=== PATIENT | female | born 1955 | race Hispanic/Latino ===

== ENCOUNTER → 2018-02-07 | Outpatient (CLI) | payer MEDICARE ==
--- NOTE | 2018-02-07 11:37 | Diagnostic Imaging Report ---
EXAM: DXA BONE DENSITY INDICATIONS: MENOPAUSE COMPARISON: None. FINDINGS: Proximal left femur neck bone mineral density (BMD) (g/cm2):0.673 Femur T-score (standard deviation relative to young adult mean BMD): -1.7 Femur Z-score (standard deviation relative to age-matched control group):-0.4 Lumbar bone mineral density (BMD) (g/cm2):1.317 Lumbar T-score (standard deviation relative to young adult mean BMD): 2.5 Lumbar Z-score (standard deviation relative to age-matched control group):4.0 Change since prior exam (%): Femur:Not applicable. Spine:Not applicable. Change since oldest prior exam (%): Femur:Not applicable. Spine:Not applicable. CONCLUSION: 1. Bone mineral density in the left femur is classified as osteopenia. Fracture risk is medium. 2. Bone mineral density in the spine is classified as normal. Fracture risk is low. World Health Organization Classification: *The Z-score is provided for informational purposes. The T-score is preferable for clinical decisions. When comparing exams, a change of >4% is considered statistically significant. SUGGESTED RECOMMENDATIONS: Normal \T\ Osteopenia:Consideration should be given to use of calcium supplementation, daily multiple vitamins and adequate exercise, as preventive measures against osteoporosis, if clinically indicated. Osteoporosis \T\ Severe Osteoporosis:In addition to the above, consideration should be given to medical therapy against osteoporosis, if clinically indicated. Dictated by: Casey Nichols M.D. on 02/07/2018 at 11:42 Electronically approved by: Casey Nichols M.D. on 02/07/2018 at 11:42
== END ==
LOC: DX 09:36
PROVIDERS: ATTEND Specialist
DX: Z12.31 Encounter for screening mammogram for malignant neoplasm of breast (principal); Z78.0 Asymptomatic menopausal state
CPT/HCPCS: 77067; 77080